=== PATIENT | male | born 1990 | race Caucasian/White ===

== ENCOUNTER 2020-04-28 22:50 | Emergency (ER) | payer BC ==
--- NOTE | 2020-04-28 23:14 | EDM.PDOC ---
ED HPI GENERAL MEDICAL PROBLEM - General Chief Complaint: Respiratory Problem Stated Complaint: COVID SYMPTOMS Time Seen by Provider: 04/28/20 23:02 - History of Present Illness INITIAL COMMENTS - FREE TEXT/NARRATIVE: History of present illness: [] Patient has cough and fever and nausea and vomiting for 1 week. He has urinated normally an hour ago. He does feel like he is somewhat weak and has fever. He does have a cough. He does not have COPD emphysema heart disease or diabetes. The nan uncle that have similar symptoms and are here for evaluation of the same time. He claims his nausea is kept him from eating and keeping anything down well but again has made urine just now. Vital signs seem stable. Review of systems: As per history of present illness and below otherwise all systems reviewed and negative. Past medical history: As per history of present illness and as reviewed below otherwise noncontributory. Surgical history: As per history of present illness and as reviewed below otherwise noncontribut ory. Social history: No reported history of drug or alcohol abuse. Family history: As per history of present illness and as reviewed below otherwise noncontributory. Physical exam: Constitutional - well developed, well-nourished and in no acute distress. Patient is obese with BMI over 55 HEENT - normocephalic, no evidence of trauma - external nose and mouth normal - no mass in neck and no JVD - mucosae moist EYES - full EOM, PERRL, no icterus - no evidence of inflammation, injection, or drainage Respiratory - no respiratory distress, equal bilateral expansion, lungs clear to auscultation and no abnormal lung sounds Cardiovascular - Regular Rhythm with S1 and S2 appreciated and no murmur, gallop or rub. GI - abdomen soft without distension or organomegaly - normal bowel sounds - no guard or rebound Musculoskeletal no gross deformity of long bones or joints - no tenderness, swelling or edema Neurologic - Alert and oriented times four - CN II-XII grossly intact - motor sensory and coordination symmetrically normal Psychiatric - appropriate mood and affect with normal thought content Hematologic - No petechiae or purpura - mucosa appropriate color and sclera not pale - normal nail bed color and refill Integument - no rash or evidence of trauma - normal turgor Diagnostics: [] Therapeutics: [] Impression: [] Plan: [] Definitive disposition and diagnosis as appropriate pending reevaluation and review of above. - Related Data Allergies Allergy/AdvReac Type Severity Reaction Status Date / Time No Known Allergies Allergy Verified 04/28/20 23:04 Home Meds: Home Meds lisinopriL [Lisinopril] 20 mg PO DAILY 04/28/20 [History] Ondansetron [Zofran ODT] 4 mg PO Q6H PRN #10 tab.dis 04/29/20 [Rx] ED ROS GENERAL - Review of Systems Review Of Systems: Comprehensive ROS is negative, except as noted in HPI. ED EXAM, GENERAL - Physical Exam Exam: See Below Free Text/Narrative:: My history and physical are in the HPI Course - Vital Signs Text/Narrative:: 12:11 AM 04/29/2020 the patient did well and took p.o. Is in satisfactory condition. He needs to understand that if his uncle test negative for COVID and influenza because the persistence of his symptoms he should be retested in 2 or 3 days. Last Recorded V/S: Last Vital Signs Temp 97.6 F 04/28/20 23:01 Pulse 91 04/28/20 23:01 Resp 16 04/28/20 23:01 BP 139/84 04/28/20 23:01 Pulse Ox 94 L 04/28/20 23:01 - Orders/Labs/Meds Orders: Active Orders 24 hr Category Date Time Status Communication Order [RC] STAT Care 04/28/20 23:21 Active Labs: Laboratory Tests 04/28/20 Range/Units 23:20 Urine Color YELLOW Urine Appearance CLEAR Urine pH 6.0 (5.0-8.0) Ur Specific [place] 1.025 (1.001-1.035) Urine Protein NEGATIVE (NEGATIVE) mg/dL Urine Glucose (UA) NEGATIVE (NEGATIVE) mg/dL Urine Ketones NEGATIVE (NEGATIVE) mg/dL Urine Occult Blood NEGATIVE (NEGATIVE) Urine Nitrite NEGATIVE (NEGATIVE) Urine Bilirubin NEGATIVE (NEGATIVE) Urine Urobilinogen 0.2 (<2.0) EU/dL Ur Leukocyte Esterase NEGATIVE (NEGATIVE) Meds: Medications Discontinued Medications Generic Name Dose Route Start Last Admin Trade Name Freq PRN Reason Stop Dose Admin Ondansetron HCl 8 mg 04/28/20 23:21 04/28/20 23:32 Zofran Odt PO 04/28/20 23:22 8 mg ONETIME ONE Administration Departure - Departure Time of Disposition: 00:12 Disposition: Home, Self-Care 01 Condition: Good Clinical Impression: Nausea & vomiting, Viral syndrome - Discharge Information Prescriptions: Ondansetron [Zofran ODT] 4 mg PO Q6H PRN #10 tab.dis PRN Reason: Nausea Instructions: Nausea and Vomiting, Adult, [id number] Referrals: Cee Grewal, SLICE PLUG CUTTER OPERATOR HELPER [Primary Care Provider] - Forms: ED Department Discharge Additional Instructions: [facility] - Primary Care [address] [place] [id number] [facility] [address] [place] [id number] The following information is given to patients seen in the emergency department who are being discharged to home. This information is to outline your options for follow-up care. We provide all patients seen in our emergency department with a follow-up referral. The need for follow-up, as well as the timing and circumstances, are variable depending upon the specifics of your emergency department visit. If you don't have a primary care physician on staff, we will provide you with a referral. We always advise you to contact your personal physician following an emergency department visit to inform them of the circumstance of the visit and for follow-up with them and/or the need for any referrals to a consulting specialist. The emergency department will also refer you to a specialist when appropriate. This referral assures that you have the opportunity for follow-up care with a specialist. All of these measure are taken in an effort to provide you with optimal care, which includes your follow-up. Under all circumstances we always encourage you to contact your private physician who remains a resource for coordinating your care. When calling for follow-up care, please make the office aware that this follow-up is from your recent emergency room visit. If for any reason you are refused follow-up, please contact the [facility] Emergency Department at and asked to speak to the emergency department charge nurse. Sepsis Event Note (ED) - Evaluation Sepsis Screening Result: Possible Sepsis Risk - Focused Exam Vital Signs: Vital Signs Temp Pulse Resp BP Pulse Ox 10/09/20 23:01 97.6 F 91 16 139/84 94 L - My Orders Last 24 Hours: My Active Orders 04/28/20 23:21 Communication Order [RC] STAT - Assessment/Plan Last 24 Hours: My Active Orders 04/28/20 23:21 Communication Order [RC] STAT
[2020-04-28] MEDS ORDERED: Ondansetron 4 MG Tab.DIS PO ONE (23:21)
== END 2020-04-29 00:54 | disposition home or self-care (01) ==
LOC: MW.ED 22:50 → EDSEX 22:50 → MW.ED 04-29 00:54
DX: U07.1 COVID-19 (principal); R11.2 Nausea with vomiting, unspecified
CPT/HCPCS: 81003; 99284; A9270

== ENCOUNTER 2020-05-02 20:13 | Emergency (ER) | payer BC, OTHER ==
[2020-05-02] MEDS ORDERED: predniSONE 20 MG Tab PO ONE (20:36)
[2020-05-02] MEDS ORDERED: Albuterol/Ipratropium 3.0-0.5 MG/3 ML Neb Soln NEB ONE (20:36)
--- NOTE | 2020-05-02 21:32 | CR ---
Indication: Cough. Technique: PA and lateral views the chest. Comparison: None Findings: The heart is normal in size. The right hemidiaphragm is elevated. The lungs are clear. No infiltrate, pleural effusion, or pneumothorax is identified. Impression: No acute cardiopulmonary process Dictated by Keturah Jeter MD @ May 02 2020 9:24PM Signed by Dr. Keturah Jeter @ May 02 2020 9:30PM
[2020-05-02] MEDS ORDERED: Albuterol 6.7 GM Inhaler INH ONE (22:03)
[2020-05-02] MEDS ORDERED: Albuterol HFA 18 Gm Inhaler ONE (22:04)
--- NOTE | 2020-05-02 22:58 | EDM.PDOC ---
ED HPI GENERAL MEDICAL PROBLEM - General Chief Complaint: Respiratory Problem Stated Complaint: WHEEZING, HARD TIME BREATHING Time Seen by Provider: 05/02/20 20:21 - History of Present Illness INITIAL COMMENTS - FREE TEXT/NARRATIVE: HISTORY AND PHYSICAL: History of present illness: Is a 30-year-old gentleman with history significant for hypertension who presents the ER today secondary to nonproductive cough and shortness of breath and wheezing has been going on for several days now. Patient reports that he came to the ED on Friday secondary to similar symptoms. Patient reports he does have coronavirus exposure with family. Patient denies any recent fevers, shakes, chills, nausea, vomiting, diarrhea, dysuria, frequency, urgency. Patient reports that he has pain all throughout his back arms and legs. Patient reports he feels sore all over. Patient denies any rhinorrhea. Patient denies any difficulty tolerating p.o. solids or liquids. Patient reports no change in urinary output. Patient reports he noticed increased wheezing earlier today and came to the ED for reevaluation. Review of systems: As per history of present illness and below otherwise all systems reviewed and negative. Past medical history: As per history of present illness and as reviewed below otherwise noncontributory. Surgical history: As per history of present illness and as reviewed below otherwise noncontributory. Social history: No reported history of drug or alcohol abuse. Family history: As per history of present illness and as reviewed below otherwise noncontributory. Physical exam: Constitutional: Patient is oriented to person, place, and time. Appears well- developed and well-nourished. No distress. HEENT: Moist mucous membranes Head: Normocephalic and atraumatic Eyes: Right eye exhibits no discharge. Left eye exhibits no discharge. No scleral icterus Neck: Normal range of motion. No tracheal deviation present. Neck supple, no nuchal rigidity, no photophobia, no Kernig's sign or Brudzinski sign, patient does not present with signs or symptoms of be consistent with meningitis. Cardiovascular: Normal rate and regular rhythm. Pulmonary: Effort normal, no respiratory distress. No wheezing rales or rhonchi. Lungs clear Abdominal: No distention, nontender to palpation Musculoskeletal: Normal range of motion Neurologic: Alert and oriented to person, place and time. Skin: [place], warm and dry. Psychiatric: Normal mood and affect. Behavior is normal. Judgment and thought content normal. Nursing note and vital signs have been reviewed Diagnostics: Pulse ox 95% on room air Chest Xray: Normal cardiac silhouette No infiltrates or effusions identified. No PTX No evidence of acute bony fracture. As interpreted by ER MD: Matt DORAN normal Covid test positive for coronavirus Therapeutics: Albuterol MDI Assessment and plan: 30-year-old gentleman who presents ER today secondary to upper respiratory infection symptoms. Patient's coronavirus test is positive. Patient's pulse ox is 95% on room air. Patient is ambulating the ED without any difficulty or shortness of breath. At this time, the patient does not meet inpatient criteria for treatment of coronavirus. Patient has been instructed on plan for discharge and need to remain in isolation and quarantine. Patient will need to self quarantine for 2 weeks. Patient be given a work note for 2 weeks and instructed to follow-up with his primary care physician for reevaluation and clearance prior to returning to work. Patient reports his breathing improved significantly after the albuterol MDI. Patient be discharged home with an albuterol MDI as well as a spacer. Reassessment at the time of disposition demonstrates that the patient is in no acute distress. The patient has remained stable throughout the entire ED visit and is without objective evidence for acute process requiring urgent intervention or hospitalization. The patient is stable for discharge, counseling is provided as documented above, discussed symptomatic treatment and specific conditions for return. I have spoken with the patient/caregiver and discussed todays findings, in addition to providing specific details for the plan of care. Questions are answered and there is agreement with the plan. Definitive disposition and diagnosis as appropriate pending reevaluation and review of above. - Related Data Allergies Allergy/AdvReac Type Severity Reaction Status Date / Time No Known Allergies Allergy Verified 05/02/20 20:32 Home Meds: Home Meds lisinopriL [Lisinopril] 20 mg PO DAILY 04/28/20 [History] Ondansetron [Zofran ODT] 4 mg PO Q6H PRN #10 tab.dis 04/29/20 [Rx] Past Medical History Cardiovascular History: Reports: High Cholesterol Endocrine/Metabolic History: Reports: Obesity/BMI 30+ Social & Family History - Family History Family Medical History: Noncontributory - Caffeine Use Caffeine Use: Reports: Soda ED ROS GENERAL - Review of Systems Review Of Systems: See Below ED EXAM, GENERAL - Physical Exam Exam: See Below Course - Vital Signs Last Recorded V/S: Last Vital Signs Temp 97.4 F 05/02/20 20:26 Pulse 74 05/02/20 22:08 Resp 24 H 05/02/20 22:08 BP 139/68 05/02/20 22:08 Pulse Ox 95 05/02/20 22:08 - Orders/Labs/Meds Orders: Active Orders 24 hr Category Date Time Status CORONAVIRUS COVID-19 PCR PHL Stat Lab 05/02/20 22:06 Ordered Labs: Laboratory Tests 05/02/20 05/02/20 Range/Units 20:42 21:25 Urine Color YELLOW Urine Appearance HAZY Urine pH 6.0 (5.0-8.0) Ur Specific [place] 1.025 (1.001-1.035) Urine Protein NEGATIVE (NEGATIVE) mg/dL Urine Glucose (UA) NEGATIVE (NEGATIVE) mg/dL Urine Ketones NEGATIVE (NEGATIVE) mg/dL Urine Occult Blood SMALL H (NEGATIVE) Urine Nitrite NEGATIVE (NEGATIVE) Urine Bilirubin NEGATIVE (NEGATIVE) Urine Urobilinogen 0.2 (<2.0) EU/dL Ur Leukocyte Esterase NEGATIVE (NEGATIVE) Urine RBC 0-3 (0-2/HPF) Urine WBC 0-2 (0-5/HPF) Ur Epithelial Cells OCCASIONAL (NONE-FEW) Urine Bacteria FEW (NEGATIVE) SARS CoV-2 RNA Rapid JILLIAN POSITIVE H (NEGATIVE) Meds: Medications Discontinued Medications Generic Name Dose Route Start Last Admin Trade Name Ethanq PRN Reason Stop Dose Admin Albuterol 0 gm 05/02/20 22:03 05/02/20 22:11 Proventil Hfa INH 05/02/20 22:04 Not Given ONETIME ONE Albuterol Confirm 05/02/20 22:04 05/02/20 22:11 Ventolin Hfa Administered 05/02/20 22:05 2 puff Dose Administration 18 gm .ROUTE .STK-MED ONE Albuterol/Ipratropium 3 ml 05/02/20 20:36 05/02/20 22:10 Duoneb 3.0-0.5 Mg/3 Ml NEB 05/02/20 20:37 Not Given ONETIME ONE Prednisone 50 mg 05/02/20 20:36 05/02/20 21:19 Prednisone PO 05/02/20 20:37 50 mg ONETIME ONE Administration Departure - Departure Time of Disposition: 22:56 Disposition: Home, Self-Care 01 Clinical Impression: Coronavirus infection, COVID-19 virus detected - Discharge Information Instructions: COVID-19: How to Protect Yourself and Others - CDC, COVID-19, COVID-19 Frequently Asked Questions, Prevent the Spread of COVID-19 if You Are Sick - [facility] Referrals: Cee Grewal DOCUMENT CONTROL ASSISTANT [Primary Care Provider] - Additional Instructions: Your symptoms today are consistent with coronavirus infection. Your coronavirus test is positive. You will need to self isolate and stay in quarantine for 2 weeks. Please follow the instructions have been provided for you. Please make an appointment to see your family doctor in 2 weeks to be reevaluated and cleared. Return to the ER if you have any new or concerning symptoms especially if you start having any increasing shortness of breath. You have been given an albuterol MDI. You can use 2 puffs every 6 hours as needed for wheezing or shortness of breath. The following information is given to patients seen in the emergency department who are being discharged to home. This information is to outline your options for follow-up care. We provide all patients seen in our emergency department with a follow-up referral. The need for follow-up, as well as the timing and circumstances, are variable depending upon the specifics of your emergency department visit. If you don't have a primary care physician on staff, we will provide you with a referral. We always advise you to contact your personal physician following an emergency department visit to inform them of the circumstance of the visit and for follow-up with them and/or the need for any referrals to a consulting sp ecialist. The emergency department will also refer you to a specialist when appropriate. This referral assures that you have the opportunity for follow-up care with a specialist. All of these measure are taken in an effort to provide you with optimal care, which includes your follow-up. Under all circumstances we always encourage you to contact your private physician who remains a resource for coordinating your care. When calling for follow-up care, please make the office aware that this follow-up is from your recent emergency room visit. If for any reason you are refused follow-up, please contact the [facility] Emergency Department at and asked to speak to the emergency department charge nurse. Sepsis Event Note (ED) - Evaluation Sepsis Screening Result: No Definite Risk - Focused Exam Vital Signs: Vital Signs Temp Pulse Resp BP Pulse Ox 05/02/20 22:08 74 24 H 139/68 95 05/02/20 20:26 97.4 F 92 22 H 154/94 H 93 L - My Orders Last 24 Hours: My Active Orders 05/02/20 22:06 CORONAVIRUS COVID-19 PCR PHL Stat - Assessment/Plan Last 24 Hours: My Active Orders 05/02/20 22:06 CORONAVIRUS COVID-19 PCR PHL Stat
== END 2020-05-02 23:09 | disposition home or self-care (01) ==
LOC: MW.ED 20:13
DX: U07.1 COVID-19 (principal); I10 Essential (primary) hypertension; E66.9 Obesity, unspecified
CPT/HCPCS: 71046; 81001; 87635; 99285; A9270; 99283; J3535-GY; U0002

== ENCOUNTER 2020-10-24 16:33 | Emergency (ER) | payer SELFPAY ==
--- NOTE | 2020-10-24 16:37 | EDM.PDOC ---
<Fredy Tipton Lucio - Last Filed: 10/24/20 18:45> ED HPI GENERAL MEDICAL PROBLEM - General Chief Complaint: Skin Complaint Stated Complaint: POSSIBLE INFECTION BETWEEN LEGS Time Seen by Provider: 10/24/20 16:36 Source of Information: Reports: Patient History Limitations: Reports: No Limitations - History of Present Illness INITIAL COMMENTS - FREE TEXT/NARRATIVE: 30-year-old male past medical history prediabetes, hypertension, obesity presents for concern for abscess. Patient notes history of recurrent infections in his perennial space between his scrotum and anus. He notes that these typically go away on their own after spontaneously bursting. Is noted pain and swelling to the area for the last 5 days worsening. This feels much worse than any of his previous abscesses. He denies any systemic symptoms specifically fever, nausea, vomiting, abdominal pain. Bambi Area Pain Score (Numeric/FACES): 9 - Related Data Allergies Allergy/AdvReac Type Severity Reaction Status Date / Time No Known Allergies Allergy Verified 10/24/20 16:41 Home Meds: Home Meds lisinopriL [Lisinopril] 40 mg PO DAILY 04/28/20 [History] Furosemide [Lasix] 40 mg PO DAILY 10/24/20 [History] metFORMIN [Glucophage] 500 mg PO DAILY 10/24/20 [History] Past Medical History HEENT History: Reports: None Cardiovascular History: Reports: High Cholesterol Respiratory History: Reports: None Gastrointestinal History: Reports: None Genitourinary History: Reports: None Musculoskeletal History: Reports: None Neurological History: Reports: None Psychiatric History: Reports: None Endocrine/Metabolic History: Reports: Obesity/BMI 30+ Hematologic History: Reports: None Dermatologic History: Reports: None Social & Family History - Family History Family Medical History: No Pertinent Family History - Caffeine Use Caffeine Use: Reports: Soda ED ROS GENERAL - Review of Systems Review Of Systems: Comprehensive ROS is negative, except as noted in HPI. ED EXAM, SKIN/RASH Exam: See Below Exam Limited By: No Limitations General Appearance: Alert, WD/WN, No Apparent Distress Throat/Mouth: Normal Voice, No Airway Compromise Head: Atraumatic, Normocephalic Neck: Normal Inspection Respiratory/Chest: No Respiratory Distress, Lungs Clear, Normal Breath Sounds, No Accessory Muscle Use Cardiovascular: Normal Peripheral Pulses, Regular Rate, Rhythm GI/Abdominal: Soft, Non-Tender (Male) Exam: Other (exam limited 2/2 patient's body habitus; large area of erythema/induration L buttocks w/ some purulent drainage) Extremities: Normal Inspection Neurological: Alert, Oriented Psychiatric: Normal Affect, Normal Mood Skin: Warm, Dry, Intact, Normal Color Course - Re-Assessments/Exams Free Text/Narrative Re-Assessment/Exam: 10/24/20 16:52 There is concern for deep space abscess versus perianal abscess versus less likely Pranay's gangrene. Will get labs. I am uncertain if the patient will fit in our CT scanner so the smt technician is evaluating. 10/24/20 18:45 Patient is with tachycardia and leukocytosis. Deferred 20 cc/kg bolus. Will give Zosyn. Will get blood cultures. Departure - Departure Disposition: DC/Tfer to [facility] 02 Clinical Impression: Abscess, Pre-diabetes, Tachycardia - Discharge Information Referrals: PCP,None [Primary Care Provider] - Forms: ED Department Discharge <Willian Song - Last Filed: 10/24/20 21:48> Course - Vital Signs Text/Narrative:: BMI Calculated at 68 for the purpose of deciding what we need to accomodate the patient in the OR, post op and on the floor. 2006 - Patient CT was done on the old scanner because he is too big for the new scanner. The CT was done on the old scanner and is somewhat difficult to interpret study study shows that he has a 9 cm diameter perianal abscess but as far as how far it extends in the perineum or along the perirectal space we were unable to define the depth of it. Patient with an 18,000 white count needs to have it explored. I talked with the local surgeon and they said we cannot accommodate this patient in the OR or postoperatively because we do not have the proper bariatric set up. Discussed with [facility] emergency physician who agreed to accept the patient if the surgeon said they could accommodate him . Dr. Gonzáles agreed to call the concrete pouring supervisor and if they can accommodate him he will accept the patient in transfer. Our surgeon Dr. Malloy agreed to see the patient in the emergency room and see if she felt he would benefit from something we can do here in the emergency department before we transfer the patient. After seeing the patient she said the patient most likely needed go to the OR and anesthesia and our nursing concrete pouring supervisor reviewed our capabilities and policy and said we needed to transfer to a facility that can handle somebody of this weight and his BMI. After Gonzáles check with their staff and accepted the patient in transfer. Last Recorded V/S: Last Vital Signs Temp 37.0 C 10/24/20 16:42 Pulse 105 H 10/24/20 19:58 Resp 18 10/24/20 19:58 BP 115/61 10/24/20 19:58 Pulse Ox 93 L 10/24/20 19:58 - Orders/Labs/Meds Orders: Active Orders 24 hr Category Date Time Status CULTURE BLOOD [BC] Stat Lab 10/24/20 19:30 Received CULTURE BLOOD [BC] Stat Lab 10/24/20 19:40 Received Sodium Chloride 0.9% [Saline Flush] Med 10/24/20 16:52 Active 10 ml FLUSH ASDIRECTED PRN Sodium Chloride 0.9% [Saline Flush] Med 10/24/20 16:52 Active 2.5 ml FLUSH ASDIRECTED PRN Blood Culture x2 Reflex Set [OM.PC] Stat Oth 10/24/20 18:46 Ordered Saline Lock Insert [OM.PC] Stat Oth 10/24/20 16:53 Ordered Medication Orders Sodium Chloride (Sodium Chloride 0.9% 10 Ml Syringe) 10 ml FLUSH ASDIRECTED PRN PRN Reason: Keep Vein Open Last Admin: 10/24/20 16:55 Dose: 10 ml Documented by: NINA Sodium Chloride (Sodium Chloride 0.9% 2.5 Ml Syringe) 2.5 ml FLUSH ASDIRECTED PRN PRN Reason: Keep Vein Open Last Admin: 10/24/20 16:55 Dose: 2.5 ml Documented by: NINA Labs: Laboratory Tests 10/24/20 10/24/20 10/24/20 Range/Units 17:10 17:10 17:10 WBC 17.69 H (4.0-11.0) K/uL RBC 5.52 (4.50-5.90) M/uL Hgb 15.0 (13.0-17.0) g/dL Hct 47.0 (38.0-50.0) % MCV 85.1 (80.0-98.0) fL MCH 27.2 (27.0-32.0) pg MCHC 31.9 (31.0-37.0) g/dL RDW Std Deviation 42.3 (28.0-62.0) fl RDW Coeff of Brock 14 (11.0-15.0) % Plt Count 212 (150-400) K/uL MPV 13.80 H (7.40-12.00) fL Neut % (Auto) 81.0 H (48.0-80.0) % Lymph % (Auto) 10.1 L (16.0-40.0) % [place] % (Auto) 7.7 (0.0-15.0) % Eos % (Auto) 1.0 (0.0-7.0) % Baso % (Auto) 0.2 (0.0-1.5) % Neut # (Auto) 14.3 H (1.4-5.7) K/uL Lymph # (Auto) 1.8 (0.6-2.4) K/uL Hopkins # (Auto) 1.4 H (0.0-0.8) K/uL Eos # (Auto) 0.2 (0.0-0.7) K/uL Baso # (Auto) 0.0 (0.0-0.1) K/uL Nucleated RBC % 0.0 /100WBC Nucleated RBCs # 0 K/uL Lactate 1.4 (0.20-2.00) mmol/L Sodium 133 L (136-148) mmol/L Potassium 3.8 (3.5-5.1) mmol/L Chloride 98 (98-107) mmol/L Carbon Dioxide 28.2 (21.0-32.0) mmol/L BUN 13 (7.0-18.0) mg/dL Creatinine 1.0 (0.8-1.3) mg/dL Est Cr Clr Drug Dosing 131.44 mL/min Estimated GFR (MDRD) > 60.0 ml/min Glucose 102 (74-106) mg/dL Calcium 8.9 (8.5-10.1) mg/dL Total Bilirubin 1.0 (0.2-1.0) mg/dL AST 30 (15-37) IU/L ALT 51 (14-63) IU/L Alkaline Phosphatase 71 (46-116) U/L Total Protein 8.7 H (6.4-8.2) g/dL Albumin 3.3 L (3.4-5.0) g/dL Globulin 5.4 H (2.6-4.0) g/dL Albumin/Globulin Ratio 0.6 L (0.9-1.6) SARS-CoV-2 RNA (JILLIAN) (NEGATIVE) 10/24/20 Range/Units 20:55 WBC (4.0-11.0) K/uL RBC (4.50-5.90) M/uL Hgb (13.0-17.0) g/dL Hct (38.0-50.0) % MCV (80.0-98.0) fL MCH (27.0-32.0) pg MCHC (31.0-37.0) g/dL RDW Std Deviation (28.0-62.0) fl RDW Coeff of Brock (11.0-15.0) % Plt Count (150-400) K/uL MPV (7.40-12.00) fL Neut % (Auto) (48.0-80.0) % Lymph % (Auto) (16.0-40.0) % Hopkins % (Auto) (0.0-15.0) % Eos % (Auto) (0.0-7.0) % Baso % (Auto) (0.0-1.5) % Neut # (Auto) (1.4-5.7) K/uL Lymph # (Auto) (0.6-2.4) K/uL Hopkins # (Auto) (0.0-0.8) K/uL Eos # (Auto) (0.0-0.7) K/uL Baso # (Auto) (0.0-0.1) K/uL Nucleated RBC % /100WBC Nucleated RBCs # K/uL Lactate (0.20-2.00) mmol/L Sodium (136-148) mmol/L Potassium (3.5-5.1) mmol/L Chloride (98-107) mmol/L Carbon Dioxide (21.0-32.0) mmol/L BUN (7.0-18.0) mg/dL Creatinine (0.8-1.3) mg/dL Est Cr Clr Drug Dosing mL/min Estimated GFR (MDRD) ml/min Glucose (74-106) mg/dL Calcium (8.5-10.1) mg/dL Total Bilirubin (0.2-1.0) mg/dL AST (15-37) IU/L ALT (14-63) IU/L Alkaline Phosphatase (46-116) U/L Total Protein (6.4-8.2) g/dL Albumin (3.4-5.0) g/dL Globulin (2.6-4.0) g/dL Albumin/Globulin Ratio (0.9-1.6) SARS-CoV-2 RNA (JILLIAN) NEGATIVE (NEGATIVE) Meds: Medications Generic Name Dose Route Start Last Admin Trade Name Freq PRN Reason Stop Dose Admin Sodium Chloride 10 ml 10/24/20 16:52 10/24/20 16:55 Sodium Chloride 0.9% 10 Ml Syringe FLUSH 10 ml ASDIRECTED PRN Administration Keep Vein Open Sodium Chloride 2.5 ml 10/24/20 16:52 10/24/20 16:55 Sodium Chloride 0.9% 2.5 Ml Syringe FLUSH 2.5 ml ASDIRECTED PRN Administration Keep Vein Open Discontinued Medications Generic Name Dose Route Start Last Admin Trade Name Freq PRN Reason Stop Dose Admin Piperacillin Sod/Tazobactam 100 mls @ 100 mls/hr 10/24/20 18:44 10/24/20 19:55 Sod 4.5 gm/ Sodium Chloride IV 10/24/20 19:43 100 mls/hr ONETIME ONE Administration Iopamidol 100 ml 10/24/20 19:07 10/24/20 19:08 Iopamidol 755 Mg/Ml 500 Ml Multipack Bottle IVPUSH 10/24/20 19:08 100 ml ONETIME STA Administration Departure - Departure Time of Disposition: 22:05 Condition: Good Sepsis Event Note (ED) - Focused Exam Vital Signs: Vital Signs Temp Pulse Resp BP Pulse Ox 10/24/20 19:58 105 H 18 115/61 93 L 10/24/20 19:36 120/84 10/24/20 16:42 37.0 C 114 H 24 H 163/87 H 90 L
[2020-10-24] MEDS ORDERED: Sodium Chloride 0.9% 2.5 ML Syringe FLUSH PRN (16:52)
[2020-10-24] MEDS ORDERED: Sodium Chloride 0.9% 10 ML Syringe FLUSH PRN (16:52)
[2020-10-24 17:47] LABS: BLOOD UREA NITROGEN,BUN 13 mg/dL (7.0-18.0); CARBON DIOXIDE,CO2 28.2 mmol/L (21.0-32.0); CHLORIDE,CL 98 mmol/L (98-107); GLUCOSE RANDOM 102 mg/dL (74-106); POTASSIUM,K 3.8 mmol/L (3.5-5.1); SODIUM,NA 133 mmol/L (136-148)
[2020-10-24] MEDS ORDERED: Piperacillin/Tazobactam 4.5 GM in Sodium Chloride 0.9% 100 ML IV ONE (18:44)
[2020-10-24] MEDS ORDERED: Iopamidol 755 MG/ML 500 ML Multipack Bottle IVPUSH STA (19:07)
--- NOTE | 2020-10-24 19:39 | CT ---
INDICATION: Perineal abscess. COMPARISON: None. TECHNIQUE: Axial CT images of the pelvis following the uneventful administration of IV contrast. Sagittal coronal reformatted series were also generated and reviewed. FINDINGS: This is a significantly limited study due to patient body habitus and resulting image quality degradation. There is the suggestion of an ovoid fluid collection in the gluteal cleft on the most caudal images provided. This measures approximately 2.2 x 8.9 cm in the axial plane (TV/AP). This is not entirely within the field of view, and is not well visualized in the sagittal or coronal planes. - The visualized hollow viscera are unremarkable. No evidence of aneurysm or lymphadenopathy. The urinary bladder is grossly unremarkable. No free fluid in the pelvis. - No acute osseous abnormality. IMPRESSION: Significantly limited study due to image degradation from patient body habitus. Suspect a gluteal abscess, as above. Targeted ultrasound evaluation may provide additional diagnostic information. Dictated by Saji Quintero MD @ 10/24/2020 7:36:44 PM Please note that all CT scans at this facility use dose modulation, iterative reconstruction, and/or weight-based dosing when appropriate to reduce radiation dose to as low as reasonably achievable. Dictated by: Saji Quintero MD @ 10/24/2020 19:36:53 (Electronically Signed)
[2020-10-24] MEDS ORDERED: fentaNYL 50 MCG/ML SDV IVPUSH ONE (21:57)
[2020-10-24] MEDS ORDERED: Ondansetron 4 MG/2 ML SDV IVPUSH ONE (21:57)
[2020-10-24] MEDS ORDERED: Sodium Chloride 0.9% 1,000 ML IV SCH (22:00)
--- NOTE | 2020-10-24 22:01 | PCM.CONS ---
H&P History of Present Illness - General Date of Service: 10/24/20 Source of Information: Patient History Limitations: Reports: No Limitations - History of Present Illness Initial Comments - Free Text/Narative: Patient is a 30 year male who presents with perianal pain. He states that he has a history of "boils" in his perineal area. He states that they usually drain then resolve on there own. He developed pain along the left side of his buttock 2 days ago. He has had increased pain that then extended up to the scrotum. He denies fevers, chills, diaphoresis, but states he feels slightly nauseated. He is morbidly obese. He states that he has hypertension and diabetes. He does not use CPAP and has never been diagnosed with DOMI. He was tachycardic and hypertensive on arrival. His WBC was 17K with a left shift. He was extremely tender along the perineal area and his size limited his bedside exam. He was too large to fit into our CT scanner so an older machine was used that gave limited images. Due to his body habitus, the images were of poor quality but showed a large gluteal abscess that was not completely visualized. Bambi Area Pain Score (Numeric/FACES): 9 - Related Data Allergies/Adverse Reactions: Allergies Allergy/AdvReac Type Severity Reaction Status Date / Time No Known Allergies Allergy Verified 10/24/20 16:41 Home Medications: Home Meds lisinopriL [Lisinopril] 40 mg PO DAILY 04/28/20 [History] Furosemide [Lasix] 40 mg PO DAILY 10/24/20 [History] metFORMIN [Glucophage] 500 mg PO DAILY 10/24/20 [History] Past Medical History HEENT History: Reports: None Cardiovascular History: Reports: High Cholesterol Respiratory History: Reports: None Gastrointestinal History: Reports: None Genitourinary History: Reports: None Musculoskeletal History: Reports: None Neurological History: Reports: None Psychiatric History: Reports: None Endocrine/Metabolic History: Reports: Diabetes, Type II, Obesity/BMI 30+ Hematologic History: Reports: None Dermatologic History: Reports: None - Infectious Disease History Infectious Disease History: Reports: None - Past Surgical History Head Surgeries/Procedures: Reports: None Social & Family History - Family History Family Medical History: No Pertinent Family History - Tobacco Use Tobacco Use Status *Q: Never Tobacco User - Caffeine Use Caffeine Use: Reports: Soda - Recreational Drug Use Recreational Drug Use: No H&P Review of Systems - Review of Systems: Review Of Systems: Comprehensive ROS is negative, except as noted in HPI. Exam - Exam Exam: See Below - Vital Signs Vital Signs: Last Vital Signs Temp 37.0 C 10/24/20 16:42 Pulse 105 H 10/24/20 19:58 Resp 18 10/24/20 19:58 BP 115/61 10/24/20 19:58 Pulse Ox 93 L 10/24/20 19:58 Weight: 248.115 kg - Exam General: Alert, Oriented, Mild Distress HEENT: Conjunctiva Clear, Mucosa Moist & [place], Posterior Pharynx Clear Lungs: Normal Respiratory Effort Cardiovascular: Regular Rhythm Rectal (Males) Exam: Other (Large abscess extending along the left anoderm and along the gluteal skin extending anteriorly. There was some drainage noted, however I was unable to completely visualize the perineum due to pain and his body habitus. ) Extremities: Normal Inspection - Patient Data Lab Results Last 24 hrs: Laboratory Results - last 24 hr 10/24/20 10/24/20 10/24/20 Range/Units 17:10 17:10 17:10 WBC 17.69 H (4.0-11.0) K/uL RBC 5.52 (4.50-5.90) M/uL Hgb 15.0 (13.0-17.0) g/dL Hct 47.0 (38.0-50.0) % MCV 85.1 (80.0-98.0) fL MCH 27.2 (27.0-32.0) pg MCHC 31.9 (31.0-37.0) g/dL RDW Std Deviation 42.3 (28.0-62.0) fl RDW Coeff of Brock 14 (11.0-15.0) % Plt Count 212 (150-400) K/uL MPV 13.80 H (7.40-12.00) fL Neut % (Auto) 81.0 H (48.0-80.0) % Lymph % (Auto) 10.1 L (16.0-40.0) % [place] % (Auto) 7.7 (0.0-15.0) % Eos % (Auto) 1.0 (0.0-7.0) % Baso % (Auto) 0.2 (0.0-1.5) % Neut # (Auto) 14.3 H (1.4-5.7) K/uL Lymph # (Auto) 1.8 (0.6-2.4) K/uL [place] # (Auto) 1.4 H (0.0-0.8) K/uL Eos # (Auto) 0.2 (0.0-0.7) K/uL Baso # (Auto) 0.0 (0.0-0.1) K/uL Nucleated RBC % 0.0 /100WBC Nucleated RBCs # 0 K/uL Lactate 1.4 (0.20-2.00) mmol/L Sodium 133 L (136-148) mmol/L Potassium 3.8 (3.5-5.1) mmol/L Chloride 98 (98-107) mmol/L Carbon Dioxide 28.2 (21.0-32.0) mmol/L BUN 13 (7.0-18.0) mg/dL Creatinine 1.0 (0.8-1.3) mg/dL Est Cr Clr Drug Dosing 131.44 mL/min Estimated GFR (MDRD) > 60.0 ml/min Glucose 102 (74-106) mg/dL Calcium 8.9 (8.5-10.1) mg/dL Total Bilirubin 1.0 (0.2-1.0) mg/dL AST 30 (15-37) IU/L ALT 51 (14-63) IU/L Alkaline Phosphatase 71 (46-116) U/L Total Protein 8.7 H (6.4-8.2) g/dL Albumin 3.3 L (3.4-5.0) g/dL Globulin 5.4 H (2.6-4.0) g/dL Albumin/Globulin Ratio 0.6 L (0.9-1.6) SARS-CoV-2 RNA (JILLIAN) (NEGATIVE) 10/24/20 Range/Units 20:55 WBC (4.0-11.0) K/uL RBC (4.50-5.90) M/uL Hgb (13.0-17.0) g/dL Hct (38.0-50.0) % MCV (80.0-98.0) fL MCH (27.0-32.0) pg MCHC (31.0-37.0) g/dL RDW Std Deviation (28.0-62.0) fl RDW Coeff of Brock (11.0-15.0) % Plt Count (150-400) K/uL MPV (7.40-12.00) fL Neut % (Auto) (48.0-80.0) % Lymph % (Auto) (16.0-40.0) % [place] % (Auto) (0.0-15.0) % Eos % (Auto) (0.0-7.0) % Baso % (Auto) (0.0-1.5) % Neut # (Auto) (1.4-5.7) K/uL Lymph # (Auto) (0.6-2.4) K/uL [place] # (Auto) (0.0-0.8) K/uL Eos # (Auto) (0.0-0.7) K/uL Baso # (Auto) (0.0-0.1) K/uL Nucleated RBC % /100WBC Nucleated RBCs # K/uL Lactate (0.20-2.00) mmol/L Sodium (136-148) mmol/L Potassium (3.5-5.1) mmol/L Chloride (98-107) mmol/L Carbon Dioxide (21.0-32.0) mmol/L BUN (7.0-18.0) mg/dL Creatinine (0.8-1.3) mg/dL Est Cr Clr Drug Dosing mL/min Estimated GFR (MDRD) ml/min Glucose (74-106) mg/dL Calcium (8.5-10.1) mg/dL Total Bilirubin (0.2-1.0) mg/dL AST (15-37) IU/L ALT (14-63) IU/L Alkaline Phosphatase (46-116) U/L Total Protein (6.4-8.2) g/dL Albumin (3.4-5.0) g/dL Globulin (2.6-4.0) g/dL Albumin/Globulin Ratio (0.9-1.6) SARS-CoV-2 RNA (JILLIAN) NEGATIVE (NEGATIVE) Result Diagrams: 10/24/20 17:10 10/24/20 17:10 Sepsis Event Note - Evaluation Sepsis Screening Result: Possible Sepsis Risk - Focused Exam Vital Signs: Vital Signs Temp Pulse Resp BP Pulse Ox 10/24/20 19:58 105 H 18 115/61 93 L 10/24/20 19:36 120/84 10/24/20 16:42 37.0 C 114 H 24 H 163/87 H 90 L Consult PN Assessment/Plan Procedures: Procedures ASSAY OF SERUM POTASSIUM (10/19/20) COMPLETE CBC W/AUTO DIFF WBC (09/28/20) COMPREHEN METABOLIC PANEL (09/28/20) EMERGENCY DEPT VISIT (05/02/20) EMERGENCY DEPT VISIT (04/28/20) GLYCOSYLATED HEMOGLOBIN TEST (09/28/20) LIPID PANEL (09/28/20) ROUTINE VENIPUNCTURE (10/19/20) SARS-COV-2 COVID-19 AMP PRB (05/02/20) TTE W/DOPPLER COMPLETE (10/05/20) URINALYSIS AUTO W/O SCOPE (04/28/20) URINALYSIS AUTO W/SCOPE (05/02/20) X-RAY EXAM CHEST 1 VIEW (09/28/20) X-RAY EXAM CHEST 2 VIEWS (05/02/20) (1) Abscess SNOMED Code(s): 135702859 Code(s): L02.91 - CUTANEOUS ABSCESS, UNSPECIFIED Current Visit: Yes Problem List Initiated/Reviewed/Updated: Yes My Orders Last 24 Hours: Initially I was called about the patient and told that the abscess was unable to be visualized bedside but on CT scan, appeared to be quite large. Given his BMI (60), it would be difficult for us to care for a patient that size at our facility with weight limitations on our floor equipment. Currently we do not have a bariatric bed available. However, I came in to examine the patient at bedside to see if I could do a bedside incision and drainage. The abscess appears too large and he is too tender to perform it bedside even with local. He will need a general anesthetic to perform an adequate exam and incision and debridement while maintaining his airway. With his BMI, this will pose a significant airway challenge particularly after the procedure. I visited with our anesthesiologist who agrees this would carry too much risk at our facility and feels this would his airway would be better managed in a larger hospital. I reviewed our bariatric policies including weight limitations on equipment. I visited with the commercial hvac service technician of patient care services, director or the OR, Dr. Weathers (my senior marketing engineer) as well as our anesthesia team. It was agreed that given our facility limitations and the airway challenge this case poses that this patient should transfer to a higher level of care.
== END 2020-10-24 22:30 ==
LOC: MW.ED 16:33
DX: L02.215 Cutaneous abscess of perineum (principal); R73.03 Prediabetes; I10 Essential (primary) hypertension; R00.0 Tachycardia, unspecified; D72.829 Elevated white blood cell count, unspecified; E66.9 Obesity, unspecified; Z68.44 Body mass index [BMI] 60.0-69.9, adult; Z79.84 Long term (current) use of oral hypoglycemic drugs; Z79.899 Other long term (current) drug therapy; Z20.822 Contact with and (suspected) exposure to COVID-19
CPT/HCPCS: 36415; 72193; 80053; 83605; 85025; 87040; 87635; 96365; 96375; 99285; J2405; J2543; J3010; J7030; Q9967; 99284; U0002